=== PATIENT | female | born 1995 | race African-American/Black ===

== ENCOUNTER 2017-03-15 18:54 | Inpatient (IN) | payer OTHER ==
[2017-03-15] MEDS ORDERED: Nalbuphine* 20 MG/ML 1 ML VIAL IV ONE (21:47)
[2017-03-15] MEDS ORDERED: Promethazine TAB* 25 MG PO ONE (21:49)
[2017-03-15] MEDS ORDERED: Nalbuphine* 20 MG/ML 1 ML VIAL ONE (21:51)
[2017-03-15] MEDS ORDERED: Promethazine TAB* 25 MG ONE (21:51)
[2017-03-16] MEDS ORDERED: OBEPIDURAL* 0 ML ONE (00:21)
[2017-03-16 00:39] LABS: Hematocrit 47 % (35-47); Hemoglobin 15.2 g/dl (12.0-16.0); Mean Corpuscular HGB Conc 33 g/dl (31-36); Mean Corpuscular Hemoglobin 31 pg (27-31); Mean Corpuscular Volume 93 fL (80-97); Mean Platelet Volume 10 um3 (7.4-10.4); Red Cell Distribution Width 13 % (10.5-15)
[2017-03-16] MEDS ORDERED: Acetaminophen TAB* 325 MG PO PRN (03:27)
[2017-03-16] MEDS ORDERED: Witch Hazel PAD* JAR TOPICAL PRN (03:27)
[2017-03-16] MEDS ORDERED: Dibucaine 1% 28.35 GM TUBE PR PRN (03:27)
[2017-03-16] MEDS ORDERED: oxyCODONE/Acetamin 5/325 MG* TAB PO PRN (03:27)
[2017-03-16] MEDS: Ibuprofen TAB* 600 MG PO PRN ×4 (03:55→21:29)
[2017-03-16] MEDS: Docusate CAP* 100 MG PO SCH ×3 (08:11→20:45)
[2017-03-17 07:43] LABS: Hematocrit 33 % (35-47); Hemoglobin 11.1 g/dl (12.0-16.0); Mean Corpuscular HGB Conc 34 g/dl (31-36); Mean Corpuscular Hemoglobin 31 pg (27-31); Mean Corpuscular Volume 93 fL (80-97); Mean Platelet Volume 9 um3 (7.4-10.4); Red Blood Count 3.54 10^6/ul (4.0-5.4); Red Cell Distribution Width 13 % (10.5-15); White Blood Count 14.3 10^3/ul (3.5-10.8)
[2017-03-17] MEDS: Docusate CAP* 100 MG PO SCH ×3 (08:29→20:36)
[2017-03-17] MEDS: Ibuprofen TAB* 600 MG PO PRN ×3 (08:29→20:36)
[2017-03-18] MEDS: Ibuprofen TAB* 600 MG PO PRN (03:56)
[2017-03-18 05:28] VITALS: BP 124/79
[2017-03-18] MEDS: Docusate CAP* 100 MG PO SCH (08:24)
== END 2017-03-18 12:20 | disposition home or self-care (01) | DRG 560 ==
LOC: MCHOBOUT 18:54 → MCHOB 03-16 00:03
PROVIDERS: ADMIT Nurse Practitioner; ATTEND Nurse Practitioner
PROC: 10E0XZZ Delivery of Products of Conception, External Approach (ICD-10-PCS; principal; 2017-03-16)
PROC: 10907ZC Drainage of Amniotic Fluid, Therapeutic from Products of Conception, Via Natural or Artificial Opening (ICD-10-PCS; 2017-03-16)
DX: O69.81X0 Labor and delivery complicated by cord around neck, without compression, not applicable or unspecified (principal); O32.6XX0 Maternal care for compound presentation, not applicable or unspecified; Z3A.39 39 weeks gestation of pregnancy; Z37.0 Single live birth
CPT/HCPCS: 36415; 85025; 85027; 86850; 86900; 86901; A9270-GY; J2300

== ENCOUNTER 2017-11-03 06:27 | Emergency (ER) | payer OTHER ==
[2017-11-03 07:22] LABS: Urine Appearance Clear; Urine Blood Negative (Negative); Urine Color Yellow; Urine Ketones Negative (Negative); Urine Protein Negative (Negative); Urine Specific Gravity 1.014 (1.010-1.030); Urine Urobilinogen Negative (Negative)
[2017-11-03 08:13] LABS: ABS Basophils 0 10^3/ul (0-0.2); ABS Eosinophils 0.1 10^3/ul (0-0.6); ABS Lymphocytes 1.8 10^3/ul (1.0-4.8); ABS Monocytes 0.5 10^3/ul (0-0.8); ABS Neutrophils 4.9 10^3/ul (1.5-7.7); ABS Nucleated RBC 0 10^3/ul; Eosinophil % 0.9 % (0-6); Hematocrit 42 % (35-47); Hemoglobin 14.2 g/dl (12.0-16.0); Lymphocyte % 25.2 % (25-47); Mean Corpuscular HGB Conc 34 g/dl (31-36); Mean Corpuscular Hemoglobin 31 pg (27-31); Mean Corpuscular Volume 92 fL (80-97); Mean Platelet Volume 8 um3 (7.4-10.4); Nucleated Red Blood Cells % 0.1; Platelet Count 287 10^3/ul (150-450); Red Blood Count 4.53 10^6/ul (4.0-5.4); Red Cell Distribution Width 13 % (10.5-15); White Blood Count 7.3 10^3/ul (3.5-10.8)
[2017-11-03 08:27] LABS: EGFR Non-African American 104.6 (>60)
--- NOTE | 2017-11-03 09:13 | ED ---
Progress - Progress Note Progress Note: pt here w/ Lt flank and LLQ pain since last night. Started on side and moved to her flank. Increased urination however pt attributed this to drinking lots of water. Denies dysuria, urgency and no vaginal d/c or irritation/burning/ itching. She is 8 months post and breast feeding s/p vaginal delivery w/ o complications during nor delivery. She has 1 male partner with whom she's sexually active. Uses condoms sometimes but not all the time. No other form of control. Denies h/o STD or any pelvic infection and no h/o kidney stones or UTI. LMP Oct 12 - just started having these again since . Prior to , cycle as been regular and denies h/o ovarian cyst, etc. GEN: A&O x 3, NAD, pleasant, cooperative HEENT: mucosa moist CARDIAC: RRR PULM: breathing easily AB: + BS, LLQ TTP - mild and no rebounding : external vulva w/o lesions or d/c; vaginal canal w/o lesions - white creamy/ mucous d/c within canal, no pain w/ speculum insertion; cervix is clear w/o lesions - os patent w/o bleeding; adnexa NTTP internally but pt has LLQ pain externally; no CMT -pt tolerated well PSYCH: appropriate mood and affect A: LLQ pain, unremarkable pelvic exam P: Due to pt's recent return to menstruation post , pain could be from the Lt ovary (ie. ovarian cyst, mittelschmerz, ovarian torsion, etc). Dr. Mcgarry to order TVUS.
--- NOTE | 2017-11-03 10:19 | RAD ---
INDICATION: Left adnexal pain COMPARISON: Similar examination January 25, 2016 TECHNIQUE: Real-time transabdominal only ultrasound examination of the female pelvis including grayscale and Doppler color flow imaging. FINDINGS: Uterus: The uterus is normal in size and echogenicity measuring 8.6 x 4.4 x 5.0 cm. The endometrial stripe is smooth and uniform measuring 170 in thickness. Ovaries: The right and left ovary measure 4.6 x 1.7 x 2.8 cm and 2.6 x 2.9 x 3.8 cm, respectively. Normal arterial and venous waveforms are identified. Appearance is within normal limits for the patient's age. There is very small amount of free fluid in the cul-de-sac. IMPRESSION: Normal and age-appropriate transabdominal pelvic ultrasound.
--- NOTE | 2017-11-03 10:20 | RAD ---
INDICATION: Left flank pain COMPARISON: None TECHNIQUE: Real-time ultrasound examination of the left kidney only including grayscale and Doppler color flow analysis. FINDINGS: The left kidney is normal in size and echogenicity. There are no hypervascular renal masses. There are no renal calculi or hydronephrosis identified. IMPRESSION: Sonographically normal left kidney.
[2017-11-03] MEDS ORDERED: Ibuprofen TAB* 600 MG PO ONE (10:34)
[2017-11-03 10:55] VITALS: BP 113/77
--- NOTE | 2017-11-03 18:15 | ED ---
Edis Garcia Natalie, scribed for Tavares Mcgarry MD on 11/03/17 at 0809 . Abdominal Pain/Female - HPI Summary HPI Summary: The pt is a 22 y/o F presenting to the ED c/o left-sided flank pain starting last night. The pain is rated 6/10 in severity. The pain is aggravated by nothing and is alleviated by nothing. 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 Pt additionally c/o left back pain. Pt denies abnormal urination, fever, nausea, and diarrhea. Her LNMP was 10/12/17. - History of Current Complaint Chief Complaint: EDAbdPain Stated Complaint: BACK/LEFT SIDE PAIN Time Seen by Provider: 11/03/17 07:18 Hx Obtained From: Patient Onset/Duration: Lasting Hours - started last night, Still Present Timing: Constant Severity Initially: Moderate Severity Currently: Moderate Pain Intensity: 6 Pain Scale Used: 0-10 Numeric Location: Flank - left flank Aggravating Factor(s): Nothing Alleviating Factor(s): Nothing Associated Signs and Symptoms: Positive: Back Pain - left side. Negative: Fever , Urinary Symptoms, Nausea, Vomiting, Diarrhea Allergies/Adverse Reactions: Allergies Allergy/AdvReac Type Severity Reaction Status Date / Time No Known Allergies Allergy Verified 03/15/17 19:23 PMH/Surg Hx/FS Hx/Imm Hx Previously Healthy: Yes Opthamlomology History: Denies: Hx Legally Blind EENT History: Denies: Hx Deafness Infectious Disease History: No Infectious Disease History: Denies: Traveled Outside the [place] in Last 30 Days - Family History Known Family History: Negative: Cardiac Disease, Hypertension, Diabetes - Social History Alcohol Use: Occasionally Substance Use Type: Reports: None Smoking Status (MU): Never Smoked Tobacco Review of Systems Negative: Fever Positive: Abdominal Pain - left sided flank pain. Negative: Vomiting, Diarrhea , Nausea Positive: other - normal urination Positive: Other - left sided back pain All Other Systems Reviewed And Are Negative: Yes Physical Exam - Summary Physical Exam Summary: Appearance: The patient is well-nourished in no acute distress and in no acute pain. Skin: The skin is warm and dry and skin color reflects adequate perfusion. HEENT: The head is normocephalic and atraumatic. The pupils are equal and reactive. The conjunctivae are clear and without drainage. Nares are patent and without drainage. Mouth reveals moist mucous membranes and the throat is without erythema and exudate. The external ears are intact. The ear canals are patent and without drainage. The tympanic membranes are intact. Neck: The neck is supple with full range of motion and non-tender. There are no carotid bruits. There is no neck vein distension. Respiratory: Chest is non-tender. Lungs are clear to auscultation and breath sounds are symmetrical and equal. Cardiovascular: Heart is regular rate and rhythm. There is no murmur or rub auscultated. There is no peripheral edema and pulses are symmetrical and equal. Abdomen: The abdomen is soft and nontender. There are normal bowel sounds heard in all four quadrants and there is no organomegaly palpated. Musculoskeletal: There is mild left-sided CVA tenderness. Extremities are non- tender with full range of motion. There is good capillary refill. There is no peripheral edema or calf tenderness elicited. Neurological: Patient is alert and oriented to person, place and time. The patient has symmetrical motor strength in all four extremities. Cranial nerves are grossly intact. Deep tendon reflexes are symmetrical and equal in all four extremities. Psychiatric: The patient has an appropriate affect and does not exhibit any anxiety or depression. Triage Information Reviewed: Yes Vital Signs On Initial Exam: Initial Vitals Temp Pulse Resp BP Pulse Ox 100.1 F 83 16 128/81 99 11/03/17 06:27 11/03/17 06:27 11/03/17 06:27 11/03/17 06:27 11/03/17 06:27 Vital Signs Reviewed: Yes Diagnostics - Vital Signs Vital Signs Temp Pulse Resp BP Pulse Ox 11/03/17 06:27 100.1 F 83 16 128/81 99 - Laboratory Lab Results: Lab Results 11/03/17 Range/Units 06:50 Urine Color Yellow Urine Appearance Clear Urine pH 5.0 (5-9) Ur Specific [place] 1.014 (1.010-1.030) Urine Protein Negative (Negative) Urine Ketones Negative (Negative) Urine Blood Negative (Negative) Urine Nitrate Negative (Negative) Urine Bilirubin Negative (Negative) Urine Urobilinogen Negative (Negative) Ur Leukocyte Esterase Negative (Negative) Urine Glucose Negative (Negative) Result Diagrams: 11/03/17 08:00 11/03/17 08:00 Lab Statement: Any lab studies that have been ordered have been reviewed, and results considered in the medical decision making process. - Ultrasound No standard instances Ultrasound Interpretation: No Acute Changes - Pelvic U/S. Normal and age- appropriate transabdominal pelvic ultrasound. ED physician has reviewed this report. Ultrasound Interpretation Completed By: Radiologist Abdominal Pain Fem Course/Dx - Course Course Of Treatment: Ms. Cruz had the relatively sudden onset of left flank/ LLQ pain. She was mildy tender to palpation with mild CVAT. U/S was negative and she had a slight temp elevation. The etiology is unclear although she may have middleschmertz. She was D/C'd with symptomatic treatment. - Diagnoses Provider Diagnoses: Abdominal pain Discharge - Discharge Plan Condition: Stable Disposition: HOME Patient Education Materials: Abdominal Pain (ED) Referrals: Ai Nuñez DO [Primary Care Provider] - 3 Days Additional Instructions: Follow up with your primary care provider in 3-5 days. Return to the Emergency Department if any new or worsening symptoms occur. The documentation as recorded by the Edis mott Natalie accurately reflects the service I personally performed and the decisions made by , Tavares Mcgarry MD.
--- NOTE | 2017-11-04 09:25 | PN ---
Progress Note - Progress Note Date of Service: 11/03/17 Note: vaginal culture results obtained and positive for gardnerella. negative for татьяна. patient was not treated at d/c. called patient and left voicemail at 9:15am. flagyl was sent to [facility]. will try calling back later in day or wait for patient to return phonecall to inform her. If unable to reach a letter will be sent home informing patient about her infection and treatment plan.
== END 2017-11-03 10:55 | disposition home or self-care (01) ==
LOC: ED 06:27
DX: R10.84 Generalized abdominal pain (principal); M54.9 Dorsalgia, unspecified
CPT/HCPCS: 36415; 76775; 76856; 80053; 81003; 83605; 83690; 84702; 85025; 86140; 87480; 87491; 87510; 87591; 87661; 99283; A9270-GY

== ENCOUNTER 2019-01-09 02:50 | Emergency (ER) | payer OTHER ==
[2019-01-09] MEDS ORDERED: Ibuprofen TAB* 600 MG PO ONE (03:26)
--- NOTE | 2019-01-09 03:52 | ED ---
HPI Chest Pain - HPI Summary HPI Summary: This patient is a 23 year old F presenting to [facility] with a chief complaint of chest tightness since 2 days ago. The patient notes that the pain worsened and woke her up this morning at 2:30. The patient notes that her pain has resolved since arriving at [facility]. The patient rates the pain 0/10 in severity. Symptoms aggravated by nothing. Symptoms alleviated by nothing. Patient reports bilateral lower extremity pain and cough for 1 week. Patient denies fever. - History of Current Complaint Chief Complaint: EDGeneral Time Seen by Provider: 01/09/19 03:03 Hx Obtained From: Patient Onset/Duration: Started Days Ago, Atraumatic, Resolved, Worse Since - 02:30 Timing: Constant, Lasting Days Initial Severity: Mild Current Severity: None Pain Intensity: 0 Pain Scale Used: 0-10 Numeric Chest Pain Location: Diffuse Chest Pain Radiates: No Character: Tightness Aggravating Factor(s): Nothing Alleviating Factor(s): Nothing Associated Signs and Symptoms: Positive: Chest Pain, Cough, Other: - bilateral lower extremity pain. Negative: Fever - Allergy/Home Medications Allergies/Adverse Reactions: Allergies Allergy/AdvReac Type Severity Reaction Status Date / Time No Known Allergies Allergy Verified 01/09/19 02:56 PMH/Surg Hx/FS Hx/Imm Hx Sensory History: Denies: Hx Legally Blind, Hx Deafness Opthamlomology History: Denies: Hx Legally Blind Infectious Disease History: No Infectious Disease History: Denies: Traveled Outside the [place] in Last 30 Days - Family History Known Family History: Negative: Cardiac Disease, Hypertension, Diabetes - Social History Alcohol Use: Occasionally Substance Use Type: Reports: None Smoking Status (MU): Never Smoked Tobacco Review of Systems Negative: Fever Positive: Chest Pain Positive: Cough Negative: Vomiting Positive: Myalgia - bilateral lower extremity pain All Other Systems Reviewed And Are Negative: Yes Physical Exam - Summary Physical Exam Summary: VITAL SIGNS: Reviewed. GENERAL: Patient is a well-developed and nourished FEMALE who is lying comfortable in the stretcher. Patient is not in any acute respiratory distress. HEAD AND FACE: No signs of trauma. No ecchymosis, hematomas or skull depressions. No sinus tenderness. EYES: PERRLA, EOMI x 2, No injected conjunctiva, no nystagmus. EARS: Hearing grossly intact. Ear canals and tympanic membranes are within normal limits. MOUTH: Oropharynx within normal limits. NECK: Supple, trachea is midline, no adenopathy, no JVD, no carotid bruit, no c- spine tenderness, neck with full ROM. CHEST: Symmetric, no tenderness at palpation LUNGS: Clear to auscultation bilaterally. No wheezing or crackles. CVS: Regular rate and rhythm, S1 and S2 present, no murmurs or gallops appreciated. ABDOMEN: Soft, non-tender. No signs of distention. No rebound no guarding, and no masses palpated. Bowel sounds are normal. EXTREMITIES: FROM in all major joints, no edema, no cyanosis or clubbing. NEURO: Alert and oriented x 3. No acute neurological deficits. Speech is normal and follows commands. SKIN: Dry and warm Triage Information Reviewed: Yes Vital Signs On Initial Exam: Initial Vitals Temp Pulse Resp BP Pulse Ox 98.9 F 78 16 114/75 98 01/09/19 02:53 01/09/19 02:53 01/09/19 02:53 01/09/19 02:53 01/09/19 02:53 Vital Signs Reviewed: Yes Diagnostics - Vital Signs Vital Signs Temp Pulse Resp BP Pulse Ox 01/09/19 02:53 98.9 F 78 16 114/75 98 - Laboratory Lab Statement: Any lab studies that have been ordered have been reviewed, and results considered in the medical decision making process. Chest Pain Course/Dx - Course Course Of Treatment: This patient is a 23 year old F presenting to [facility] with a chief complaint of chest tightness since 2 days ago. The patient notes that the pain worsened and woke her up this morning at 2:30. The patient notes that her pain has resolved since arriving at [facility]. Patient reports bilateral lower extremity pain and cough for 1 week. Patient denies fever. In the ED course the patient was given ibuprofen. Dx musculoskeletal pain. Patient will be discharged home with follow up from PCP. The patient is agreeable with this plan. - Diagnoses Provider Diagnoses: Musculoskeletal pain Discharge - Sign-Out/Discharge Documenting (check all that apply): Patient Departure - discharge home Patient Received Moderate/Deep Sedation with Procedure: No - Discharge Plan Condition: Stable Disposition: HOME Patient Education Materials: Musculoskeletal Pain (ED) Referrals: [facility] [Outside] Additional Instructions: Follow up with your primary care physician in 1-2 days. Return to the emergency department with any new or worsening symptoms. - Attestation Statements Document Initiated by Scribe: Yes Documenting Scribe: Lucía Mar Provider For Whom Scribe is Documenting (Include Credential): Rossi Duvall MD Scribe Attestation: ILucía, scribed for Rossi Duvall MD on 01/09/19 at 0417. Status of Scribe Document: Ready
[2019-01-09 04:52] VITALS: BP 121/75
== END 2019-01-09 04:42 | disposition home or self-care (01) ==
LOC: ED 02:50
DX: M79.605 Pain in left leg (principal); M79.604 Pain in right leg; R07.9 Chest pain, unspecified; R05 Cough
CPT/HCPCS: 99282; A9270-GY

== ENCOUNTER 2019-04-17 00:01 | Emergency (ER) | payer OTHER ==
--- OUTSIDE RECORDS SUMMARY | 2019-04-17 00:12 | XMS REPORT | Continuity of Care Document ---
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 DIRECTORRadha Unavailable Unavailable Allergies, Adverse Reactions, Alerts Substance Reaction Status No Known Allergies Active Medications Medication Instructions Dosage Effective Dates Status Comments (start - stop) amoxicillin 500 mg - No Longer Active tablet Problems Condition Effective Dates (start - Clinical Status Comments stop) Encounter for test, result negative Encounter for oth general cnsl and advice on contraception Encntr screen for infections w sexl mode of transmiss Molluscum contagiosum Acute vaginitis Encounter for oth general cnsl and advice on contraception Encntr screen for infections w sexl mode of transmiss Acute vaginitis Encounter for test, result positive Weeks of gestation of not specified BCM Other, Surveillance OCP, Start PT, Negative Irregular menstrual cycle Procedures Procedure Date URINE TEST OFFICE/OUTPATIENT VISIT, EST N.GONORRHOEAE, DNA, AMP PROB CHYLMD DNA, AMP PROBE TRICHOMONAS VAGIN, DIR PROBE Metronidazole 0.75% vaginal gel OTHER Medical Services Contraceptive 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 Other 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 STI WET SMEAR ASSAY OF BODY FLUID-PH Results Test Name Date and Time Measure Units Reference Range Abnormal Flag Status Comments Panel Description: Wet Mount Final Wet Mount 14:25:30 Hyphae/Giana: noBudding yeast: Final noTrich: noClue cells: yes (>=20%)WBCs: yes (moderate)Amine/Whiff test: positivepH: 5.0 Panel Description: High Sensitivity Urine Test Final High Sensitivity Urine 14:05:25 NegativeInternal Quality Final Test Control: Positive Advance Directives Directive Yes / No Effective Date File Name No information Encounters Encounter Practice Location Reason(s) Diagnoses Date Provider Providers Description For Visit Copied on Encounter OFFICE/OUTPA [facility] Vaginal Encounter for Gail Garcia. Referring TIENT VISIT, [facility] [place] Discharge test, [address] Provider: KALEB [facility] a/o Odor result [address], [place], [place], [address], [place], [address], [address] complaint) er for oth [place]. [address]ns[address], [place], [place], [place], [address]. [place], contraceptionEn [id number], cntr screen for [place] infections w tel:[phone] sexl mode of [id number] transmissMollus cum contagiosumAcut e vaginitis [facility] Encounter for Anastasia Referring [facility] [place] oth general [address]. [address] Provider: [facility] cnsl and advice [address], [place], [place], [place]ast[place], [address] [place] [place] [address], [place] [address] cntr screen for tel:[phone] St, [place], St, [place], [place] [address] [place], [address]. [place], sexl mode of tel:[phone], transmissAcute [id number] [place] vaginitis tel:[phone] [facility] En[facility] for [facility]. [facility] [address] Provider: [facility] result [address], [place], [place], [address], [facility]. [place], [address] of gestation of [place]. [address], [place], specified [place], [id number], [place] tel:[phone] [facility] Other, [facility] [place] Surveillance lester Sueane. [address] [place] , [place], [facility], [address] [place], [address]. [address] tel:[phone] , [place], [address] [place], [id number], [place] tel:[phone] [facility] OCP, Start May-0 Ndiayecatrachito Angel. [facility] [place] [address], [place], [place], [address]. [facility], [facility] tel:[phone] [address] , [place], [place], [id number], [place] tel:[phone] [facility] PT, Apr-2 Senthil Angel. [facility] [place] NegativeIrregul [phone] [facility] ar menstrual 4 , [place], [place], [address]. [facility], [facility] tel:[phone] [address] , [place], [place], [id number], [place] tel:[phone] [facility] Feb-2 [facility] [place] [address]. [address] [facility] [address], [place], [place], [facility], [facility] [address]. [address] tel:[phone] , [place], [address] [place], [id number], [place] tel:[phone] Family History Family Member Diagnosis Age At Onset No information Immunizations Vaccine Date Status Comments MMR administered Source: New Immunization Record HPV administered Source: New Immunization Record Hepatitis B administered Source: New Immunization Record Payers Payer name Insurance type Covered libertarian ID Authorization(s) Joni VAN [facility] CI [id number] Social History Type Description Quantity Date Captured Comments Alcohol Use Details Unknown Caffeine Use Details Unknown Tobacco Use Status Unknown Smoking Status Never smoker Non-Smoking Tobacco : No Details Available : No Details Available 2018 Use Details Sex Female Vital Signs Date / Height Weight BMI Pulse Blood Temperature Respiratory Body Head BMI Pulse Inhaled Time: Rate Pressure Rate Surface Circumference percentile Ox Ox Area No information Chief Complaint And Reason For Visit Most recent encounter only, dated '04/08/2019 13:50'. Vaginal Discharge a /o Odor (chief complaint) Reason For Referral Reason For Referral No information Plan Of Treatment Date Type Action Status No information History Of Present Illness Encounter Date Complaint History Of Present Illness No information Functional Status Date Functional Assessment No information Medications Administered Medication Instructions Dosage Effective Dates (start - stop) Status Comments No information Instructions Date Instruction Additional Information No information Assessments Type Assessment Date assessment Encounter for test, result negative assessment Encounter for oth general cnsl and advice on contraception 2018 assessment Encntr screen for infections w sexl mode of transmiss assessment Molluscum contagiosum assessment Acute vaginitis Goals Health Concern Goal Type Priority Status Date No information Medical Equipment Description Device Atkinson Device Identifier Effective Dates (start - stop ) Status No information Mental Status Date Cognitive Assessment No information Health Concerns Observation Date No information Concern Status Date No information
--- OUTSIDE RECORDS SUMMARY | 2019-04-17 00:12 | XMS REPORT | Continuity of Care Document ---
:1995 Author Organization [facility] Address [address] [place], [place] [id number] Phone Care Team Providers Name Role Phone Radha Reynolds NP Unavailable Unavailable Allergies, Adverse Reactions, Alerts Substance [...] Negative Irregular menstrual cycle Procedures Procedure Date No information Results Test Name Date and Time Measure Units Reference Range Abnormal Flag Status Comments No information Advance Directives Directive Yes / No Effective Date File Name No information Encounters Encounter Practice Location Reason(s) Diagnoses Date Provider Providers Description For Visit Copied on Encounter [facility] Encounter for Gail Garcia. [facility] [place] test, [address] Provider: Desiree [facility] [address] [place], [address], Gail, [facility] [place], [address] for oth [place]. [address] [facility] , [place], [address]. [place], contraceptionEn [id number], cntr screen for [place] infections w tel:[phone] sexl mode of [id number] transmissMollus cum contagiosumAcut e vaginitis [facility] Matheus-0 Anastasia [facility] [place] [address] Lalitha. [address], [place], [place], [place], [address], [place]. [address] tel:[phone] St, [place], [address] [place], [id number], [place] tel:[phone] [facility] Encounter for Anastasia [facility] [place] ot general Lalitha. 620 Provider: [facility] cnsl and advice [address], [place], Anastasia J, 620 [facility], [address] contraceptionEn [address], [place]. [address] [facility] cntr screen for tel:[phone] St, [place], [place], [place], [place] [address] [place], [address]. [place], sexl mode of tel:[phone], transmissAcute [address] [place] vaginitis tel:[phone] [facility] Encounter for Jul- Gail Garcia. [facility] [place] test, [address] Provider: [facility] result 6 [facility], [place], [address], [facility]. [facility], 620 of gestation of [place]. [address], [place], specified [place], [id number], [place] tel:[phone] [facility] BCM Other, [facility] [place] Surveillance lester Sueane. [address], [place], [place], [address] [place], [address]. [address] tel:[phone] St, [place], [address] [place], [id number], [place] tel:[phone] [facility] OCP, Start March- Ndiaye Jeanne. [facility] [place] [address], [place], [place], [address]. [facility], 620 tel:[phone], [place], [place], [id number], [place] tel:[phone] [facility] PT, Ndiaye Jeanne. [facility] [place] NegativeIrregul [address], [place], [place], [address]. [facility], [address] tel:[phone], [place], [place], [id number], [place] tel:[phone] [facility] Apr-2 Janine [facility] [place] 1- [place]. [address], [place], [place], [facility], [address] [address]. [address] tel:[phone] , [place], [address] [place], [id number], [place] tel:[phone] Family History Family Member Diagnosis Age At Onset No information Immunizations Vaccine Date Status Comments MMR administered Source: New Immunization Record HPV administered Source: New Immunization Record Hepatitis B administered Source: New Immunization Record Payers Payer name Insurance type Covered republican ID Authorization(s) Medicaid MC [id number] Social History Type Description Quantity Date Captured Comments Alcohol Use Details Unknown Caffeine Use Details Unknown Tobacco Use Status Unknown Smoking Status Never smoker Sex Female Vital Signs Date / Height Weight BMI Pulse Blood Temperature Respiratory Body Head BMI Pulse Inhaled Time: Rate Pressure Rate Surface Circumference percentile Ox Ox Area No information Chief Complaint And Reason For Visit No information Reason For Referral Reason For Referral No information Plan Of Treatment Date Type Action Status No information History Of Present Illness Encounter Date Complaint History Of Present Illness No information Functional Status Date Functional Assessment No information Medications Administered Medication Instructions Dosage Effective Dates (start - stop) Status Comments No information Instructions Date Instruction Additional Information No information Assessments Type Assessment Date No information Goals Health Concern Goal Type Priority Status Date No information Medical Equipment Description Device [place] Device Identifier Effective Dates (start - stop ) Status No information Mental Status Date Cognitive Assessment No information Health Concerns Observation Date No information Concern Status Date No information
[2019-04-17] MEDS ORDERED: Sulfamethox/Trimethoprim DS 800/160* TAB PO ONE (00:40)
[2019-04-17] MEDS ORDERED: diPHENhydraMINE PO* 25 MG PO ONE (00:41)
--- NOTE | 2019-04-17 00:42 | ED ---
Skin Complaint - HPI Summary HPI Summary: Patient complains of area of redness and swelling on right buttock cheek discovered today. Patient states possible spider bite. Denies purulent discharge, trauma, fever, cough, sore throat, CP, SOB, N/V/D, abdominal pain, change in urine, change in BM. Medical history is none. - History of Current Complaint Chief Complaint: EDRashSkinAbscess Time Seen by Provider: 04/17/19 00:19 Stated Complaint: SPIDER BITE ON BUTT PER PT Hx Obtained From: Patient Onset/Duration: Started Hours Ago Skin Exposure Onset/Duration: Hours Ago Timing: Constant Onset Severity: Mild Current Severity: None Pain Intensity: 0 Pain Scale Used: 0-10 Numeric Skin Location: Discrete Aggravating Symptom(s): Nothing Alleviating Symptom(s): Nothing Associated Signs & Symptoms: Negative - Allergy/Home Medications Allergies/Adverse Reactions: Allergies Allergy/AdvReac Type Severity Reaction Status Date / Time No Known Allergies Allergy Verified 04/17/19 00:05 PMH/Surg Hx/FS Hx/Imm Hx Endocrine/Hematology History: Denies: Hx Anticoagulant Therapy Cardiovascular History: Denies: Hx Pacemaker/ICD History: Denies: Hx Dialysis Sensory History: Denies: Hx Legally Blind, Hx Deafness Opthamlomology History: Denies: Hx Eye Prosthesis, Hx Legally Blind EENT History: Denies: Hx Deafness Neurological History: Denies: Hx Dementia Psychiatric History: Denies: Hx Autism - Immunization History Date of Tetanus Vaccine: UTD Date of Influenza Vaccine: NO Infectious Disease History: No Infectious Disease History: Denies: Traveled Outside the [place] in Last 30 Days - Family History Known Family History: Negative: Cardiac Disease, Hypertension, Diabetes - Social History Alcohol Use: Occasionally Substance Use Type: Reports: None Smoking Status (MU): Never Smoked Tobacco Review of Systems Constitutional: Negative Eyes: Negative ENT: Negative Cardiovascular: Negative Respiratory: Negative Gastrointestinal: Negative Genitourinary: Negative Musculoskeletal: Negative Skin: Other Neurological: Negative Psychological: Normal All Other Systems Reviewed And Are Negative: Yes Physical Exam - Summary Physical Exam Summary: 5 cm x 5 cm area of indurated skin with localized erythema. No apical abscess noted. No purulent discharge. No evidence of wound. Mildly tender to palpation. Triage Information Reviewed: Yes Vital Signs On Initial Exam: Initial Vitals Temp Pulse Resp BP Pulse Ox 98.3 F 85 16 134/101 98 06/13/19 00:03 04/17/19 00:03 04/17/19 00:03 04/17/19 00:03 04/17/19 00:03 Vital Signs Reviewed: Yes Appearance: Positive: Well-Appearing Skin: Positive: Warm Head/Face: Positive: Normal Head/Face Inspection Eyes: Positive: Normal ENT: Positive: Normal ENT inspection Neck: Positive: Supple Respiratory/Lung Sounds: Positive: Clear to Auscultation Cardiovascular: Positive: Normal Abdomen Description: Positive: Nontender Musculoskeletal: Positive: Normal Neurological: Positive: Normal Psychiatric: Positive: Normal AVPU Assessment: Alert - [place] Coma Scale Best Eye Response: 4 - Spontaneous Best Motor Response: 6 - Obeys Commands Best Verbal Response: 5 - Oriented Coma Scale Total: 15 Diagnostics - Vital Signs Vital Signs Temp Pulse Resp BP Pulse Ox 04/17/19 00:16 98.8 F 76 16 136/100 100 04/17/19 00:03 98.3 F 85 16 134/101 98 - Laboratory Lab Statement: Any lab studies that have been ordered have been reviewed, and results considered in the medical decision making process. Course/Dx - Course Course Of Treatment: Patient complains of area of redness and swelling on right buttock cheek discovered today. Patient states possible spider bite. Denies purulent discharge, trauma, fever, cough, sore throat, CP, SOB, N/V/D, abdominal pain, change in urine, change in BM. Medical history is none. Physical exam:5 cm x 5 cm area of indurated skin with localized erythema. No apical abscess noted. No purulent discharge. No evidence of wound. Mildly tender to palpation. Vital signs within normal limits. No indication for I&D. Patient given Rx for Bactrim. Recommended Benadryl for itching. - Diagnoses Provider Diagnoses: Insect bite, Cellulitis Discharge - Sign-Out/Discharge Documenting (check all that apply): Patient Departure Patient Received Moderate/Deep Sedation with Procedure: No - Discharge Plan Condition: Stable Disposition: HOME Prescriptions: Sulfamethox/Trimethoprim DS* [Bactrim DS 800/160 TAB*] 1 tab PO BID 10 Days #20 tab Patient Education Materials: Cellulitis (ED), Insect Bite or Sting (ED) Referrals: No Primary Care Phys,NOPCP [Primary Care Provider] - Additional Instructions: Take antibiotics as directed. May also take Benadryl for itching. Follow-up with primary care. Return to the ED for any new or worsening symptoms. - Billing Disposition and Condition Condition: STABLE Disposition: Home
[2019-04-17 00:57] VITALS: BP 128/81
== END 2019-04-17 00:55 | disposition home or self-care (01) ==
LOC: ED 00:01
DX: S30.860A Insect bite (nonvenomous) of lower back and pelvis, initial encounter (principal); L03.818 Cellulitis of other sites; W57.XXXA Bitten or stung by nonvenomous insect and other nonvenomous arthropods, initial encounter; Y92.9 Unspecified place or not applicable
CPT/HCPCS: 99282; A9270-GY

== ENCOUNTER 2019-04-28 22:52 | Emergency (ER) | payer OTHER ==
[2019-04-29 00:31] LABS: Urine Appearance Cloudy; Urine Bacteria 1+ (Absent); Urine Bilirubin Negative (Negative); Urine Blood 2+ (Negative); Urine Color Yellow; Urine Glucose Negative (Negative); Urine Ketones Negative (Negative); Urine Nitrite Negative (Negative); Urine Protein 1+(30 mg/dL) (Negative); Urine Red Blood Cell 2+(6-10/hpf) (Absent); Urine Specific Gravity 1.018 (1.010-1.030); Urine Squamous Epithelial Cell Present (Absent); Urine Urobilinogen Negative (Negative); Urine White Blood Cell 2+(11-20/hpf) (Absent)
[2019-04-29] MEDS ORDERED: Sulfamethox/Trimethoprim DS 800/160* TAB PO ONE (00:48)
--- NOTE | 2019-04-29 00:49 | ED ---
GI/ HPI - HPI Summary HPI Summary: Patient complains of increased urinary frequency, suprapubic cramping starting today. Denies fever, cough, sore throat, CP, SOB, N/V/D, change in BM, vaginal discharge, bleeding or pain. Medical history is none. - History of Current Complaint Chief Complaint: EDUrogenitalProblems Time Seen by Provider: 04/28/19 23:13 Stated Complaint: POSSIBLE UTI PER PT Hx Obtained From: Patient Onset/Duration: Started Hours Ago Timing: Intermittent Severity: Mild Current Severity: Mild Pain Intensity: 2 Location of Pain: Suprapubic Pain Characteristics: Cramping - Allergy/Home Medications Allergies/Adverse Reactions: Allergies Allergy/AdvReac Type Severity Reaction Status Date / Time No Known Allergies Allergy Verified 04/17/19 00:05 PMH/Surg Hx/FS Hx/Imm Hx Endocrine/Hematology History: Denies: Hx Anticoagulant Therapy Cardiovascular History: Denies: Hx Pacemaker/ICD History: Denies: Hx Dialysis Sensory History: Denies: Hx Eye Prosthesis, Hx Legally Blind, Hx Deafness Opthamlomology History: Denies: Hx Eye Prosthesis, Hx Legally Blind EENT History: Denies: Hx Deafness Neurological History: Denies: Hx Dementia Psychiatric History: Denies: Hx Autism - Immunization History Date of Tetanus Vaccine: UTD Date of Influenza Vaccine: NO Infectious Disease History: No Infectious Disease History: Denies: Traveled Outside the [place] in Last 30 Days - Family History Known Family History: Negative: Cardiac Disease, Hypertension, Diabetes - Social History Alcohol Use: Occasionally Substance Use Type: Reports: None Smoking Status (MU): Never Smoked Tobacco Review of Systems Constitutional: Negative Eyes: Negative ENT: Negative Cardiovascular: Negative Respiratory: Negative Gastrointestinal: Negative Positive: burning Musculoskeletal: Negative Skin: Negative Neurological: Negative Psychological: Normal All Other Systems Reviewed And Are Negative: Yes Physical Exam - Summary Physical Exam Summary: Mild tenderness suprapubically, abdominal exam otherwise unremarkable. Lung sounds clear to auscultation bilaterally. No CVA tenderness bilaterally. Triage Information Reviewed: Yes Vital Signs On Initial Exam: Initial Vitals Temp Pulse Resp BP Pulse Ox 98.3 F 89 15 133/89 100 04/28/19 22:56 04/28/19 22:56 04/28/19 22:56 04/28/19 22:56 04/28/19 22:56 Vital Signs Reviewed: Yes Appearance: Positive: Well-Appearing Skin: Positive: Warm Head/Face: Positive: Normal Head/Face Inspection Eyes: Positive: Normal Neck: Positive: Supple Respiratory/Lung Sounds: Positive: Clear to Auscultation Cardiovascular: Positive: Normal Abdomen Description: Positive: Nontender Musculoskeletal: Positive: Normal Neurological: Positive: Normal Psychiatric: Positive: Normal AVPU Assessment: Alert - [place] Coma Scale Best Eye Response: 4 - Spontaneous Best Motor Response: 6 - Obeys Commands Best Verbal Response: 5 - Oriented Coma Scale Total: 15 Diagnostics - Vital Signs Vital Signs Temp Pulse Resp BP Pulse Ox 04/28/19 22:56 98.3 F 89 15 133/89 100 - Laboratory Lab Results: Lab Results 04/28/19 Range/Units 23:07 Urine Color Yellow Urine Appearance Cloudy Urine pH 6.0 (5-9) Ur Specific [place] 1.018 (1.010-1.030) Urine Protein 1+(30 mg/dl) A (Negative) Urine Ketones Negative (Negative) Urine Blood 2+ A (Negative) Urine Nitrate Negative (Negative) Urine Bilirubin Negative (Negative) Urine Urobilinogen Negative (Negative) Ur Leukocyte Esterase 2+ A (Negative) Urine WBC (Auto) 2+(11-20/hpf) A (Absent) Urine RBC (Auto) 2+(6-10/hpf) A (Absent) Ur Squamous Epith Cells Present A (Absent) Urine Bacteria 1+ A (Absent) Urine Glucose Negative (Negative) Lab Statement: Any lab studies that have been ordered have been reviewed, and results considered in the medical decision making process. GIGU Course/Dx - Course Course Of Treatment: Patient complains of increased urinary frequency, suprapubic cramping starting today. Denies fever, cough, sore throat, CP, SOB, N/V/D, change in BM, vaginal discharge, bleeding or pain. Medical history is none. Physical exam:Mild tenderness suprapubically, abdominal exam otherwise unremarkable. Lung sounds clear to auscultation bilaterally. No CVA tenderness bilaterally. Vital signs within normal limits. UA positive UTI. Rx for Bactrim. - Diagnoses Provider Diagnoses: UTI (urinary tract infection) Discharge - Sign-Out/Discharge Documenting (check all that apply): Patient Departure Patient Received Moderate/Deep Sedation with Procedure: No - Discharge Plan Condition: Stable Disposition: HOME Prescriptions: Ciprofloxacin TAB* [Cipro 500 MG TAB*] 500 mg PO BID #10 tab Sulfamethox/Trimethoprim DS* [Bactrim DS 800/160 TAB*] 1 tab PO BID 10 Days #20 tab Patient Education Materials: Urinary Tract Infection in Women (ED) Referrals: No Primary Care Phys,NOPCP [Primary Care Provider] - Additional Instructions: Take antibiotics as directed. Follow-up with primary care. Return to the ED for any new or worsening symptoms. - Billing Disposition and Condition Condition: STABLE Disposition: Home
[2019-04-29 00:57] VITALS: BP 0/0
--- NOTE | 2019-05-01 06:21 | PN ---
Progress Note - Progress Note Date of Service: 05/01/19 Note: Patient's urine culture grew Escherichia coli grew 75,000- 100,000. Patient placed on Bactrim. Will wait for final culture for sensitivity.
--- NOTE | 2019-05-02 05:48 | PN ---
Progress Note - Progress Note Date of Service: 05/02/19 Note: patient was placed on bactrim which is resistant too. will switch to cipro 500mg x5 days for uti. left at 8:01am
== END 2019-04-29 00:18 | disposition home or self-care (01) ==
LOC: ED 22:52
DX: N39.0 Urinary tract infection, site not specified (principal)
CPT/HCPCS: 81003; 81015; 87077; 87086; 87186; 99282; A9270-GY

== ENCOUNTER 2019-07-05 12:36 | Emergency (ER) | payer OTHER ==
[2019-07-05] MEDS ORDERED: Ondansetron ODT TAB* 4 MG SL PRN (13:45)
[2019-07-05] MEDS ORDERED: Ondansetron ODT TAB* 4 MG ONE (14:02)
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
[2019-07-05 14:47] VITALS: BP 129/86
== END 2019-07-05 14:46 | disposition home or self-care (01) ==
LOC: ED 12:36
DX: S09.90XA Unspecified injury of head, initial encounter (principal); W19.XXXA Unspecified fall, initial encounter; Y92.9 Unspecified place or not applicable; Z79.899 Other long term (current) drug therapy
CPT/HCPCS: 99282; A9270-GY